=== PATIENT | male | born 1945 | race Caucasian/White ===

== ENCOUNTER 2021-11-18 20:53 | Outpatient (CLI) | payer MEDICARE, BC, SELFPAY | END 2021-11-18 20:54 | disposition home or self-care (01) | LOC: AMB 12-10 15:17 | PROVIDERS: Visit Provider Student in an Organized Health Care Education/Training Program | DX: T14.90XA Injury, unspecified, initial encounter (principal); V69.40XA Driver of heavy transport vehicle injured in collision with unspecified motor vehicles in traffic accident, initial encounter; Y92.410 Unspecified street and highway as the place of occurrence of the external cause | CPT/HCPCS: A0998 ==